=== PATIENT | female | born 1970 ===

== ENCOUNTER 2016-09-28 13:21 | Emergency (ER) | payer OTHER ==
--- NOTE | 2016-10-03 14:44 | ER ---
ADMIT: 09/28/2016 RM/LOC: ER [facility] MR#: [id number] [facility] [address] [place], [place] [id number] MYLENE CHINO [address] [place] [address] Emergency Room Report SEX: F AGE: 45 : 1970 DATE: 09/28/2016 ADDENDUM: CHIEF COMPLAINT: Left elbow and shoulder pain. HISTORY OF PRESENT ILLNESS: This is a 45-year-old female, who works for [employer]. She has been working there for about 3 years now. She does not remember any specific trauma, but she said it has just been bothering her for the last 2 weeks. No x-ray was done because there was no trauma. I did send her home with Karen for inflammation. I told her this sounds like more of her repetitive pain causing tendinitis in that left elbow. On examination of the elbow, she is tender on the medial and lateral aspects, but has full range of motion with the elbow and full range of motion with the shoulder. Her tenderness in her shoulder is posterior, just lateral to the shoulder blade. Again, I sent her home with Karen, also advised her to buy an elbow brace from [employer] or [employer] and follow up with primary care physician if her pain continues to worsen. CLINICAL IMPRESSION: Tendinitis of the elbow. EUGENIE Jackson / Stevan Woods MD / shanta JOB #: [id number] CC: Stevan Woods MD, Attending Physician Richard Whitman MD, Family Physician
== END 2016-09-28 14:00 | disposition home or self-care (01) ==
LOC: ER 13:21
DX: M77.8 Other enthesopathies, not elsewhere classified (principal)